=== PATIENT | female | born 1960 | race Caucasian/White ===

== ENCOUNTER 2017-03-12 08:52 | Outpatient (CLI) | payer OTHER ==
--- NOTE | 2017-03-12 11:24 | MMO ---
BILATERAL DIGITAL SCREENING MAMMOGRAMS: Date: 03/12/17 This patient's mammogram was interpreted with the assistance of computer-aided detection. Comparison made with exams of 02/05/16 and 01/12/13. FINDINGS: There are scattered fibroglandular densities. No suspicious masses, calcifications, or architectura l distortion seen. IMPRESSION: BIRADS 1: Negative Routine annual mammographic screening is recommended. POS: [facility]
== END 2017-03-12 08:53 | disposition home or self-care (01) ==
LOC: SCSMAMMO 08:52
PROVIDERS: ATTEND Family Medicine
DX: Z12.31 Encounter for screening mammogram for malignant neoplasm of breast (principal)
CPT/HCPCS: 77067; G0202

== ENCOUNTER 2018-03-17 15:03 | Outpatient (CLI) | payer OTHER ==
--- NOTE | 2018-03-17 15:29 | MMO ---
BILATERAL SCREENING MAMMOGRAM: DATE: 03/17/18 HISTORY: 57-year-old female for screening mammography. COMPARISON: 03/12/17, 02/05/16, 01/12/13. FINDINGS: Bilateral MLO and CC views of the breasts show scattered fibroglandular breast tissue. There is no ev idence of suspicious mass, suspicious cluster of microcalcifications, or area of architectural distor tion. Interpretation of this mammogram was performed with the assistance of computer-aided detection. IMPRESSION: BIRADS 1: Negative Annual screening mammography is recommended. POS: [facility]
== END 2018-03-17 15:04 | disposition home or self-care (01) ==
LOC: SCSMAMMO 15:03
PROVIDERS: ATTEND Family Medicine
DX: Z12.31 Encounter for screening mammogram for malignant neoplasm of breast (principal)
CPT/HCPCS: 77067

== ENCOUNTER 2023-11-02 16:00 | Outpatient (CLI) | payer SELFPAY | END 2023-11-02 16:01 | disposition home or self-care (01) | LOC: SLEEPLAB 16:00 | PROVIDERS: ATTEND Family Medicine | DX: G47.33 Obstructive sleep apnea (adult) (pediatric) (principal); R53.83 Other fatigue; R06.83 Snoring | CPT/HCPCS: 95800 ==